=== PATIENT | female | born 1980 | race Native Hawaiian/Other Pacific Islander ===

== ENCOUNTER 2016-10-05 12:45 | Observation (INO) | payer BC ==
[~2016-10-05] VITALS: Ht 162.6 cm; Wt 116.3 kg
[2016-10-05 13:29] VITALS: BP 138/91; TEMP 97.7; Ht 162.6 cm; Wt 116.3 kg
[2016-10-05 15:59] LABS: PLATELET COUNT 202 K/uL (152-353)
[2016-10-05 16:00] VITALS: BP 135/71; TEMP 97.7
[2016-10-05 16:17] LABS: POTASSIUM 3.8 mmol/L (3.6-5.2); SODIUM 132 mmol/L (136-145)
[2016-10-05 20:15] VITALS: BP 128/80; TEMP 98.6
[2016-10-06 00:29] VITALS: BP 127/74; TEMP 98.4
[2016-10-06 05:44] VITALS: BP 149/71; TEMP 98.3
[2016-10-06 08:00] VITALS: BP 123/76; TEMP 98.4
[2016-10-06 11:37] VITALS: BP 115/70; TEMP 98.3
--- NOTE | 2016-10-06 14:00 | NUR ---
DR. ROBLES CALLED, UPDATED ON PATIENT'S STATUS. NEW ORDERS NOTED.
[2016-10-06 16:00] VITALS: BP 103/56; TEMP 98.3
[2016-10-06 20:16] VITALS: BP 138/78; TEMP 98.1
[2016-10-07] VITALS: BP 110/54; TEMP 98.8
[2016-10-07 04:00] VITALS: BP 115/68; TEMP 98.1
[2016-10-07 05:52] LABS: POTASSIUM 3.6 mmol/L (3.6-5.2); SODIUM 133 mmol/L (136-145)
[2016-10-07 06:30] LABS: PLATELET COUNT 139 K/uL (152-353)
[2016-10-07 08:26] VITALS: BP 107/67; TEMP 97.8
[2016-10-07 12:00] VITALS: BP 137/91; TEMP 97.6
--- NOTE | 2016-10-07 14:30 | NUR ---
SPOKE WITH DR ROBLES REGARDING PT REQUESTING DIFLUCAN MEDICATION. NEW ORDER RECEIVED. INFORMED HER IV OUT ATTEMPTED IV ACCESS X 2 UNSUCCESSFUL.
--- NOTE | 2016-10-07 15:30 | NUR ---
SPOKE WITH DR ROBLES REGARDING NO MESSAGE RECEIVED FROM HER REGARDING IV OR IM ROCEPHIN. STATED PT DOESN'T NEED MEDICATION SHE HAS FLU. OK TO D/C HOME WITHOUT DOSE OF ROCEPHIN.
--- NOTE | 2016-10-07 16:25 | NUR ---
PT GIVEN D/C INSTRUCTIONS. PT VERBALIZED UNDERSTANDING.
== END 2016-10-07 16:50 | disposition home or self-care (01) ==
LOC: MED/SURG 12:45
PROVIDERS: ADMIT Family Medicine
DX: J10.08 Influenza due to other identified influenza virus with other specified pneumonia (principal); E86.0 Dehydration; R05 Cough; R10.11 Right upper quadrant pain
CPT/HCPCS: 36415; 80053; 83735; 85027; 87040; 87070; 87205; 94640; 94664; 94668; 94760; 96365; 96366; 96367; 96374; 99220; G0378; G0379; J0696; J1885

== ENCOUNTER 2016-11-22 12:11 | Outpatient (CLI) | payer BC ==
[~2016-11-22] VITALS: Ht 162.6 cm; Wt 118.8 kg
[2016-11-22 12:20] VITALS: BP 114/73; TEMP 98.7
== END 2016-11-22 19:31 | disposition home or self-care (01) ==
LOC: INF 12:11
DX: L03.115 Cellulitis of right lower limb (principal)
CPT/HCPCS: 96365; J0712

== ENCOUNTER 2016-11-23 07:32 | Outpatient (CLI) | payer BC ==
[~2016-11-23] VITALS: Ht 162.6 cm; Wt 118.8 kg
[2016-11-23 07:50] VITALS: BP 105/68; TEMP 98.7
== END 2016-11-23 19:00 | disposition home or self-care (01) ==
LOC: INF 07:32
DX: L03.115 Cellulitis of right lower limb (principal)
CPT/HCPCS: 96365; J0712

== ENCOUNTER 2016-11-23 08:47 | Emergency (ER) | payer BC ==
[~2016-11-23] VITALS: Ht 162.6 cm; Wt 118.8 kg
[2016-11-23 09:04] VITALS: TEMP 98.4
[2016-11-23 09:37] VITALS: BP 114/62
== END 2016-11-23 09:39 | disposition home or self-care (01) ==
LOC: ED 08:47
DX: L27.0 Generalized skin eruption due to drugs and medicaments taken internally (principal); T37.8X5A Adverse effect of other specified systemic anti-infectives and antiparasitics, initial encounter; Y92.098 Other place in other non-institutional residence as the place of occurrence of the external cause
CPT/HCPCS: 96372; 99283; J1100; J1200

== ENCOUNTER 2016-11-24 07:28 | Outpatient (CLI) | payer BC ==
[~2016-11-24] VITALS: Ht 162.6 cm; Wt 118.8 kg
== END 2016-11-24 18:56 | disposition home or self-care (01) ==
LOC: INF 07:28
DX: L03.115 Cellulitis of right lower limb (principal)
CPT/HCPCS: 96365; J0712